=== PATIENT | female | born 1960 | race Caucasian/White ===

== ENCOUNTER 2023-07-22 11:36 | Outpatient (CLI) | payer MEDICAID ==
[~2023-07-22 11:36] MED LIST: DOXY25TA19 PO
== END 2023-07-22 23:59 | disposition home or self-care (01) ==
LOC: RAD 11:36
PROVIDERS: ATTEND Nurse Practitioner Primary Care
DX: M47.816 Spondylosis without myelopathy or radiculopathy, lumbar region (principal); M48.061 Spinal stenosis, lumbar region without neurogenic claudication; M25.78 Osteophyte, vertebrae; M47.896 Other spondylosis, lumbar region; R20.0 Anesthesia of skin
CPT/HCPCS: 72074; 72110